=== PATIENT | female | born 1940 | race Caucasian/White ===

== ENCOUNTER 2018-01-06 12:50 | Outpatient (CLI) | payer MEDICARE, BC ==
--- NOTE | 2018-01-06 14:05 | MRI ---
CERVICAL SPINE MRI NONCONTRAST: Comparison: None. History: Cervical radiculopathy. FINDINGS: There is multilevel disc osteophyte formation throughout the cervical spine which is most pronounced at the mid to lower aspect. There is degenerative hypertrophy at the atlantodental articulation. The imaged posterior fossa contents are unremarkable. There is no evidence of acute marrow edema or signi ficant subluxation. C2-3: No significant central canal narrowing or neural foraminal stenosis. C3-4: No significant central canal narrowing or neural foraminal stenosis. C4-5: Trace spondylolisthesis. There is bilateral degenerative facet hypertrophy and uncinate process hypertrophy with mild to moderate left and mild right neural foraminal narrowing. C5-6: There is a broad based osteophyte with mild effacement of the ventral thecal sac. Uncinate proc ess hypertrophy and facet joint hypertrophy result in moderate left and mild right neural foraminal n arrowing. C6-7: Broad based disc osteophyte resulting in mild effacement of the ventral thecal sac. There is un cinate process hypertrophy bilaterally with mild bilateral neural foraminal narrowing. C7-T1: No high grade central canal neural foraminal stenosis. There is no significant cord signal abnormality demonstrated. IMPRESSION: 1. Multilevel cervical spine degenerative change as outline above. POS: [facility]
== END 2018-01-06 12:51 | disposition home or self-care (01) ==
LOC: TBSIIMAG 12:50
PROVIDERS: ATTEND Neurological Surgery
DX: M47.22 Other spondylosis with radiculopathy, cervical region (principal)
CPT/HCPCS: 72141; 72142; 72156

== ENCOUNTER 2019-05-27 08:09 | Outpatient (CLI) | payer MEDICARE, BC ==
--- NOTE | 2019-05-27 09:21 | CT ---
CT ANGIOGRAM NECK WITH CONTRAST: DATE: 05/27/2019 HISTORY: 79-year-old female with ICD-10: "I 65.8 occlusion and stenosis of other precerebral arteries" TECHNIQUE: After IV contrast injection, arterial bolus chasing technique scan performed from AP window to superi or edge of maxillary sinuses. Coronal and sagittal 3-D MIP reconstructions. FINDINGS: Aortic arch: No high-grade stenosis, dissection, or aneurysm. Brachiocephalic: No high-grade stenosis. Right subclavian: No high-grade stenosis of proximal and mid portions. Right vertebral: No high-grade short segment focal stenosis identified. Left subclavian: Normal Left vertebral: Dominant. No high-grade stenosis. Right common carotid: No high-grade stenosis. Left common carotid: No high-grade stenosis. Right internal carotid: Large, heavily calcified atheromatous plaque beginning several millimeters fr om its origin and reaching cranially to 1.5 cm distal to the origin causes approximately 50-70% stenosis. The rest of the vessel is of normal caliber. Left internal carotid: Calcified moderate atheromatous plaque slightly smaller than the one on the co ntralateral side at proximal internal carotid causes approximately 25% stenosis. The rest of the vessel is normal. IMPRESSION: Atheromatous heavily calcified plaque at bilateral proximal internal carotid arteries, right greater than left, causing approximately 50-70% stenosis on the right, and approximately 25% stenosis on the left.
[2019-05-27] MEDS ORDERED: Iopamidol 370 76% 100 ML VIAL ONE (13:44)
== END 2019-05-27 08:10 | disposition home or self-care (01) ==
LOC: CT 08:09
PROVIDERS: ATTEND Thoracic Surgery (Cardiothoracic Vascular Surgery)
DX: I65.23 Occlusion and stenosis of bilateral carotid arteries (principal)
CPT/HCPCS: 70498; 82565

== ENCOUNTER 2019-06-07 14:30 | Inpatient (IN) | payer MEDICARE, BC ==
--- NOTE | 2019-06-07 12:04 | HP ---
HISTORY OF PRESENT ILLNESS: This is a 79-year-old female followed by Dr. Hernandez on a regular basis. She has been followed by me for a symptomatic right carotid stenosis for several years. She continues to be asymptomatic. However, during routine ophthalmology examination for glaucoma, she was found to have a plaque in her right retinal artery and was referred back. A CTA demonstrated 60% to 70% what appears to be stable stenosis compared with previous ultrasound studies with perhaps a small ulceration. PAST MEDICAL HISTORY: Besides her glaucoma includes hypertension, dyslipidemia, hypothyroidism, and previous breast cancer. PAST SURGICAL HISTORY: Includes left breast lumpectomy and x-ray treatment as well as appendectomy and surgery for ruptured ovarian cyst. SOCIAL HISTORY: She is a nonsmoker. She is . ALLERGIES: PENICILLIN. MEDICATIONS: Include; 1. Metoprolol tartrate 25 daily. 2. Gabapentin 300 b.i.d. 3. Latanoprost eye drops. 4. Aspirin 81 a day. 5. Levothyroxine 88 mcg daily. 6. Crestor 10 mg daily. 7. Prilosec 40 mg daily. 8. Timolol eye drops. 9. Lumigan eye drops. PHYSICAL EXAMINATION: VITAL SIGNS: Height 5 feet 6 inches, weight 162. Heart rate 62, blood pressure 156/78. GENERAL: Looking younger than her stated age. NECK: No carotid bruits. CARDIAC: Regular rate and rhythm. No murmurs. LUNGS: Clear to auscultation. ABDOMEN: Soft and nontender. EXTREMITIES: No edema with palpable femoral and popliteal pulses. PLAN: At this time is for right carotid endarterectomy and informed consent has been obtained. We have discussed the option of continued medical management and she wishes to proceed with intervention given the recent retinal artery findings, which are new. Job ID: [id number]
--- NOTE | 2019-06-07 17:22 | HP ---
DATE OF PROCEDURE: 06/09/2019. HISTORY OF PRESENT ILLNESS: This is a pleasant 79-year-old female, who I have followed for along with Dr. De La Rosa for carotid artery disease for the past 5 years. Her most recent carotid ultrasound 1 year ago showed 50% to 69% right internal carotid artery stenosis, which was stable with a peak velocity of around 200 cm/sec. She had no symptoms to suggest a TIA . She was seeing her automation sales manager in [place] for glaucoma, where she was noted to have retinal artery plaque and it was recommended she return for visit as they were quite concerned per the patient. A CT angiogram was done, showing probably 60% to 70% stenosis of the right internal carotid artery with calcific plaque. Based on the asymptomatic new findings on retinal exam, she has decided to proceed with a right carotid endarterectomy. PAST MEDICAL AND SURGICAL HISTORY: Includes hypertension, dyslipidemia, hypothyroidism, glaucoma, and left breast DCIS in 2000, treated with lumpectomy and radiation. Otherwise, her surgical history includes an appendectomy and ovarian cyst removal and lumpectomy. SOCIAL HISTORY: She has not smoked in many years. She does not exercise regularly. 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 ALLERGIES: SHE HAS AN ALLERGY TO PENICILLIN. CURRENT MEDICATIONS: Include: 1. Metoprolol 25 b.i.d. 2. Gabapentin 300 twice a day. 3. Latanoprost eye drops. 4. Lumigan eye drops. 5. CoQ10. 6. Timolol eye drops. 7. Prilosec 40 b.i.d. 8. Crestor 10 daily. 9. Levothyroxine 88 mcg a day. 10. Aspirin 81 a day. PHYSICAL EXAMINATION: GENERAL: Alert and cooperative lady. VITAL SIGNS: Blood pressure of 150/80, heart rate 60. Height 5 feet and 6 inches, weight 162. NECK: No carotid bruits. CARDIAC: Regular rate and rhythm. No murmurs. LUNGS: Clear to auscultation. ABDOMEN: Soft, nontender, and nondistended. EXTREMITIES: Without edema with palpable femoral and popliteal pulses. ASSESSMENT AND PLAN: This patient has a stable less than 70% stenosis of the right internal carotid artery that is asymptomatic. However, she has new eyeground findings on the right suggesting a microembolization and because of this, she has elected to proceed with carotid endarterectomy, understanding the option of continued followup. Informed consent has been obtained. Job ID: [id number]
[2019-06-09] MEDS ORDERED: Protamine Sulfate 50 MG/5 ML VIAL ONE (06:33)
[2019-06-09] MEDS ORDERED: Heparin 5,000 UNITS/ML VIAL ONE (06:33)
[2019-06-09] MEDS ORDERED: Levofloxacin 500 mg/D5W 100 ml Premix Bag ONE ×2 (06:42→07:17)
[2019-06-09] MEDS ORDERED: Clindamycin/D5W 900 mg/50 ml Premix Bag ONE ×2 (06:43→07:17)
[2019-06-09] MEDS ORDERED: Fentanyl 100 MCG/2 ML VIAL ONE (06:57)
[2019-06-09] MEDS ORDERED: Midazolam HCl 2 mg/2 ml Vial ONE (06:57)
--- NOTE | 2019-06-09 10:23 | OP ---
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 PROCEDURE PERFORMED: Right carotid endarterectomy with bovine patch angioplasty. ANESTHESIA: General. ESTIMATED BLOOD LOSS: 100. DESCRIPTION OF PROCEDURE: After adequate anesthesia had been obtained, ultrasound was used to guide the future incision. The patient was prepped and draped. Incision was made along the sternocleidomastoid muscle, rotating the muscle laterally. Following isolation of the common internal and external carotid arteries without visualization of the hypoglossal or vagus nerve, the patient was systemically heparinized. ACT level was checked. Clamps were applied. Arteriotomy performed and a 12-Syriac shunt was placed. Endarterectomy was performed of a heavily calcified stenotic plaque. There was not very good tapering distally and this required some 7-0 tacking sutures. Following irrigation of the area, a bovine patch was used to close the arteriotomy with a running 7-0 Prolene suture. Prior to completing the suture line, the shunt was removed, vessel backflushed and forward flushed. Suture line was then completed and flow was restored up the external and then internal carotid artery. Protamine was given to partially reverse the heparin. After obtaining good hemostasis, the wound was irrigated and closed in layers. It should be noted that distal exposure was somewhat limited and the shunt clamp was used to assist with some backbleeding around the shunt. The patient tolerated the procedure well. Job ID: [id number]
[2019-06-09] MEDS ORDERED: Glycopyrrolate 0.2 MG/ML 5 ML SYRINGE ONE (10:35)
[2019-06-09] MEDS ORDERED: Rocuronium Bromide 10 MG/ML (10ML VIAL) ONE (10:35)
[2019-06-09] MEDS ORDERED: Ondansetron PF 4 MG/2 ML Vial ONE (10:35)
[2019-06-09] MEDS ORDERED: PHENYLEPHRINE-NS 100 MCG/ML 10 ML SYRINGE ONE (10:35)
[2019-06-09] MEDS ORDERED: Dexamethasone 20 MG/5 ML VIAL ONE (10:35)
[2019-06-09] MEDS ORDERED: PROPOFOL 200 MG/20 ML VIAL ONE (10:35)
[2019-06-09] MEDS: Sodium Chloride 0.9% 1,000 ML IV SCH ×2 (10:45→21:37)
[2019-06-09] MEDS ORDERED: Nitroglycerin 50 MG/250 ML BOT 250 ML IVPB PRN (10:56)
[2019-06-09] MEDS ORDERED: Ondansetron PF 4 MG/2 ML Vial IVP PRN (10:56)
[2019-06-09] MEDS ORDERED: HYDROcodone/Acetaminophen 5/325 mg Tablet PO PRN ×2 (10:56)
[2019-06-09] MEDS ORDERED: Fentanyl 100 MCG/2 ML VIAL SLOW IVP PRN ×2 (10:56)
[2019-06-09] MEDS ORDERED: Norepinephrine 8 MG/0.9% NS 250 ML IVPB PRN (10:56)
[2019-06-09] MEDS ORDERED: Acetaminophen 325 MG TAB PO PRN (10:56)
[2019-06-09] MEDS ORDERED: Ketorolac Tromethamine 30 MG/ML VIAL IVP PRN (10:56)
[2019-06-09 11:32] VITALS: BP 99/49
[2019-06-09 12:25] VITALS: BMI 21.8
[2019-06-09] MEDS: Gabapentin 300 MG CAP PO SCH (20:11)
[2019-06-09] MEDS: DorzolamidE/Timolol 2%/0.5% Ophth Soln 10 ml Bottle R EYE SCH (20:12)
[2019-06-09] MEDS ORDERED: Latanoprost 0.005% Ophth Soln 2.5 ml Bottle R EYE SCH (21:00)
[2019-06-10] MEDS ORDERED: Levothyroxine Sodium 88 MCG TAB PO SCH (06:00)
[2019-06-10] MEDS ORDERED: Clopidogrel Bisulfate 75 MG TAB PO SCH (09:00)
[2019-06-10] MEDS ORDERED: Rosuvastatin 10 MG TAB PO SCH (09:00)
[2019-06-10] MEDS ORDERED: Aspirin 325 mg Enteric Coated Tablet PO SCH (09:00)
[2019-06-10] MEDS ORDERED: Latanoprost 0.005% Ophth Soln 2.5 ml Bottle EA EYE SCH (09:00)
[2019-06-10 09:01] VITALS: TEMP 98.1
[2019-06-10] MEDS: Sodium Chloride 0.9% 1,000 ML IV SCH (09:11)
[2019-06-10] MEDS: DorzolamidE/Timolol 2%/0.5% Ophth Soln 10 ml Bottle R EYE SCH (09:43)
[2019-06-10] MEDS: Gabapentin 300 MG CAP PO SCH (09:43)
--- NOTE | 2019-06-10 14:11 | DIS ---
DATE OF ADMISSION: 06/09/2019 DATE OF DISCHARGE: 06/10/2019 The patient was admitted to the hospital for elective right carotid endarterectomy for an asymptomatic retinal artery embolic event. She underwent surgery and did well postoperatively. She had no new neurologic deficits. She will be discharged home today on her admitting medicines and I will give her a 1-month course of Plavix 75 mg a day. Discharge and followup instructions have been given. Incision is healing nicely with mild bruising and mild swelling. Job ID: [id number]
== END 2019-06-10 10:44 | disposition home or self-care (01) | DRG 38 ==
LOC: SURG A 06-09 06:12 → CCU 06-09 10:39
PROVIDERS: ADMIT Thoracic Surgery (Cardiothoracic Vascular Surgery); ATTEND Thoracic Surgery (Cardiothoracic Vascular Surgery)
PROC: 03CK0ZZ Extirpation of Matter from Right Internal Carotid Artery, Open Approach (ICD-10-PCS; principal; 2019-06-09)
PROC: 03CM0ZZ Extirpation of Matter from Right External Carotid Artery, Open Approach (ICD-10-PCS; 2019-06-09)
PROC: 03UM0JZ Supplement Right External Carotid Artery with Synthetic Substitute, Open Approach (ICD-10-PCS; 2019-06-09)
PROC: 03UK0JZ Supplement Right Internal Carotid Artery with Synthetic Substitute, Open Approach (ICD-10-PCS; 2019-06-09)
DX: I65.21 Occlusion and stenosis of right carotid artery (principal); H34.9 Unspecified retinal vascular occlusion; I10 Essential (primary) hypertension; E78.5 Hyperlipidemia, unspecified; E03.9 Hypothyroidism, unspecified; Z90.49 Acquired absence of other specified parts of digestive tract; Z98.890 Other specified postprocedural states; Z88.0 Allergy status to penicillin; Z80.3 Family history of malignant neoplasm of breast
CPT/HCPCS: J1100; J1644; J1956; J2250; J2405; J2704; J2720; J3010; J3490